=== PATIENT | female | born 1985 | race Hispanic/Latino ===

== ENCOUNTER 2016-03-05 16:25 | Inpatient (IN) | payer MEDICAID ==
[2016-03-05] MEDS ORDERED: LACTATED RINGERS 1,000 ML ONE (16:37)
[2016-03-05] MEDS ORDERED: PITOCin/NS 20 UNIT/1000ML DRIP 1,000 ML IV ONE (16:38)
[2016-03-05] MEDS ORDERED: POLYCILLIN/NS 2 GM/100 ML 100 ML IV ONE ×2 (16:39→18:00)
[2016-03-05] MEDS ORDERED: SUBLIMAZE ONE (16:43)
[2016-03-05 17:00] LABS: Urine Drugs of Abuse Note Disclamer
[2016-03-05] MEDS ORDERED: BRETHINE SUB-Q PRN (17:09)
[2016-03-05] MEDS ORDERED: MINERAL OIL PO PRN (17:09)
[2016-03-05 17:12] LABS: Bacteria,Urine 1+ /HPF (Negative); Bilirubin,Urine NEG (Negative); Blood,Urine MOD (Negative); Ketones,Urine 20 mg/dL (Negative); Leukocyte Esterase,Urine LG (Negative); Mucus,Urine FEW /HPF; Nitrite,Urine NEG (Negative); Protein,Urine <15 mg/dL mg/dL (Negative); Urobilinogen,Urine < 2.0 mg/dL (<2.0)
[2016-03-05] MEDS ORDERED: DERMOPLAST TP PRN (17:13)
[2016-03-05] MEDS ORDERED: TYLENOL PO PRN (17:13)
[2016-03-05] MEDS ORDERED: BENADRYL PO PRN (17:13)
[2016-03-05] MEDS ORDERED: DULCOLAX PR PRN (17:13)
[2016-03-05] MEDS ORDERED: TUCKS PAD TP PRN (17:13)
[2016-03-05] MEDS ORDERED: MILK OF MAGNESIA PO PRN (17:13)
[2016-03-05] MEDS ORDERED: LANSINOH TP PRN (17:13)
[2016-03-05] MEDS ORDERED: ZOFRAN IV PRN (17:13)
[2016-03-05] MEDS ORDERED: PHENERGAN PO PRN (17:13)
[2016-03-05] MEDS ORDERED: ePHEDrine SULFATE IV PRN (17:20)
--- NOTE | 2016-03-05 17:21 | History and Physical Report ---
History of Present Illness Date of examination: 03/05/16 (pt presented to Triage 8cm) Date of admission: 03/05/16 16:27 History of present illness: Past History : 3 Term Births: 1 Premature Births: 0 Living Children: 1 Para: 1 Mult. Births: 0 Prev : 0 Prev. attempt? 0 Aborta: 1 Elect. Ab: 1 Spont. Ab: 0 Ectopics: 0 # 1 Delivery date: 2006 Weeks Gestation: 6 Delivery type: EAB # 2 Delivery date: 04/05/2014 Weeks Gestation: 39 Delivery type: Vaginal Anesthesia type: IV medication Delivery location: [facility] Infant Sex: female weight: 7.25 Past Medical History: Reviewed history from 08/11/2013 and no changes required: Negative Past Medical History Past Surgical History: Reviewed history from 08/11/2013 and no changes required: TAB - no complications Past Medical History Abnormal PAP: negative JANKI Exposure: negative Infertility: negative Uterine Anomaly: negative Uterine Surgery (not C/S): negative Other Gynecologic Problems: negative Social Hx: Patient is single Smoking History: Patient is a former smoker. Infection History Hx of STD: chlamydia Infection History Comments: GC Genetic History Congenital Heart Defect: Mom: no Dad: no Rosy Disease: Mom: no Dad: no Thalassemia Mom: no Dad: no Neural Tube Defect Mom: no Dad: no Down's Syndrome Mom: no Dad: no Hern[place]-Sachs Mom: no Dad: no Sickle Cell Disease/Trait Mom: no Dad: no Hemophilia Mom: no Dad: no Muscular Dystrophy Mom: no Dad: no Cystic Fibrosis Mom: no Dad: no Saima Chorea Mom: no Dad: no Mental Retardation Mom: no Dad: no Fragile X Mom: no Dad: no Other Genetic/Chromosomal Disorder Mom: no Dad: no Child w/other defect Mom: no Dad: no Other: FOB history gastroschesis first child; second child SIDS Enviromental Exposures Xray Exposure: no Medication, drug, or alcohol use since LMP: no Chemical/Other Exposure: no Exposure to Cat Liter: no Hx of Parvovirus (Fifth Disease): no Active Medications (reviewed today): LO LOESTRIN FE 1 MG-10 MCG / 10 MCG ORAL TABS (NORETHIN-ETH ESTRAD-FE BIPHAS) one po q day PLUS 27-1 MG TABS ( VIT-FE FUMARATE-FA) 1 po Current Allergies (reviewed today): No known allergies Laboratory Results Routine Urinalysis Leukocytes: negative Nitrite: negative Urobilinogen: negative Protein: negative Blood: negative Ketone: negative Bilirubin: negative Glucose: negative Urine HCG: positive Review of Systems General Denies fever, chills, sweats, anorexia, fatigue, weakness, malaise, weight loss and sleep disorder. Complains of abnormal vaginal bleeding. Denies vaginal discharge, incontinence, dysuria, hematuria, urinary frequency, amenorrhea, menorrhagia, genital sores, decreased libido, painful periods, painful sex, urinary urgency, hot flashes, vaginal dryness, vaginal itching and vaginal odor. CV Denies chest pains, palpitations, syncope, dyspnea on exertion, orthopnea, PND and peripheral edema. Resp Denies cough, dyspnea at rest, excessive sputum, hemoptysis, wheezing and pleurisy. GI Denies nausea, vomiting, diarrhea, constipation, change in bowel habits, abdominal pain, melena, hematochezia, jaundice, gas/bloating, indigestion/ heartburn, dysphagia and odynophagia. Breast Denies left breast lump, right breast lump, nipple discharge, bloody discharge from nipple, breast pain, abnormal mammogram and breast enlargement. Psych Denies depression, anxiety, irritability and mood swings. PHYSICAL EXAM HEENT: normocephalic, no lesions or deformities Neck/Thyroid: supple, thyroid normal Skin no abnormal lesions or rashes Chest: respiratory effort normal, clear to auscultation Breasts: normal without skin changes or masses CV: regular, normal S1-S2, no murmur, no rub, no gallop Abdomen: normal bowel sounds; soft, nontender Musculoskeletal: grossly normal ROM in joints, no joint tenderness or muscle weakness Neuro: grossly normal DTRs, sensation, strength, cranial nerves Extremities: no discoloration or edema DISABILITY CASE MANAGER Exams Vulva/Vagina: normal appearance, no discharge, lesions. No evidence of cystocele or rectocele. Cervix: normal appearance, no lesions, no discharge Uterus: normal position, midline, mobile Adnexae: no masses or tenderness Rectovaginal: no masses or tenderness Past History - Obstetrical History Expected Date of Delivery: 03/05/16 Actual Gestation: 40 Week(s) 0 Day(s) : 3 Para: 1 Hx # Term Pregnancies: 1 Number of Pregnancies: 0 Spontaneous Abortions: 0 Induced : 1 Number of Living Children: 1 Medications and Allergies Allergies Allergy/AdvReac Type Severity Reaction Status Date / Time No Known Allergies Allergy Verified 04/05/14 01:38 Home Medications Medication Instructions Recorded Confirmed Last Taken Type Calcium Carbonate [Tums] 400 mg PO Q4HR PRN 04/05/14 04/05/14 04/04/14 14:00 History 400mg Vit#96/Ferrous Fum/FA 1 tab PO DAILY 04/05/14 04/05/14 04/04/14 13:00 History [ Tablet] 1 tab Active Meds: Active Medications Acetaminophen (Tylenol) 650 mg PO Q4H PRN PRN Reason: Pain MILD(1-3)/Fever >100.5/LOPEZ Acetaminophen/Hydrocodone Bitart ([place] 5/325) 2 each PO Q6H PRN PRN Reason: Pain, Moderate (4-6) Benzocaine/Menthol (Dermoplast) 1 spray TP PRN PRN PRN Reason: Episiotomy Pain Bisacodyl (Dulcolax) 10 mg OK BID PRN PRN Reason: Constipation Diphenhydramine HCl (Benadryl) 25 mg PO Q6H PRN PRN Reason: Itching Diphtheria/Tetanus/Acell Pertussis (Boostrix) 0.5 ml IM .ONCE ONE Stop: 03/06/16 17:14 Ephedrine Sulfate (Ephedrine Sulfate) 10 mg IV Q2M PRN PRN Reason: Hypotension Stop: 03/05/16 17:14 Ampicillin Sodium (Polycillin/Ns 2 Gm/100 Ml) 100 mls @ 100 mls/hr IV ONCE ONE PRN Reason: Protocol Stop: 03/05/16 18:08 Cefazolin/Sodium Chloride (Ancef/Ns 2 Gm/100 Ml) 100 mls @ 200 mls/hr IV Q8H ERIK PRN Reason: Protocol Lactated Ringer's (Lactated Ringers) 1,000 mls @ 125 mls/hr IV DIRECT ERIK Oxytocin/Sodium Chloride (Pitocin/Ns 20 Unit/1000ml Drip) 1,000 mls @ 125 mls/ hr IV DIRECT ERIK Ibuprofen (Motrin) 600 mg PO Q6H ERIK Magnesium Hydroxide (Milk Of Magnesia) 30 ml PO HS PRN PRN Reason: Constipation Measles/Mumps/Rubella Vaccine Live (M-M-R Ii Vaccine) 0.5 ml SUB-Q .ONCE ONE Stop: 03/06/16 17:14 Methylergonovine Maleate (Methergine) 0.2 mg PO Q8HR ERIK Stop: 03/06/16 14:01 Mineral Oil (Mineral Oil) 30 ml PO QHS PRN PRN Reason: Constipation Multi-Ingredient Ointment (Lansinoh) 1 applic TP PRN PRN PRN Reason: Sore Nipples Ondansetron HCl (Zofran) 4 mg IV Q8H PRN PRN Reason: Nausea And Vomiting Oxytocin (Pitocin) 10 unit IM ONCE ONE Stop: 03/05/16 17:11 Promethazine HCl (Phenergan) 25 mg PO Q6H PRN PRN Reason: Nausea And Vomiting Sodium Chloride (Sodium Chloride Flush Syringe 10 Ml) 10 ml IV PRN NR Terbutaline Sulfate (Brethine) 0.25 mg SUB-Q ONCE PRN PRN Reason: Hyperstimulation/Hypertonicity Stop: 03/05/16 17:10 Witch [place]/Glycerin (Tucks Pad) 1 each TP PRN PRN PRN Reason: Hemorrhoid/cleansing/soothing - Vital Signs Vital signs: Vital Signs Temp Pulse Resp BP Pulse Ox 97.9 F 68 18 124/60 98 03/05/16 16:30 03/05/16 16:30 03/05/16 16:30 03/05/16 16:30 03/05/16 16:30 Temp Pulse Resp BP Pulse Ox 97.9 F 79 18 135/62 96 03/05/16 16:30 03/05/16 17:04 03/05/16 16:30 03/05/16 17:04 03/05/16 16:33 - Physical Exam Breasts: Positive: deferred Cardiovascular: Regular rate, Normal S1, Normal S2 Abdomen: Positive: normal appearance, soft, normal bowel sounds. Negative: distention, tenderness Vulva: both: normal Vagina: Positive: normal moisture. Negative: discharge Cervix: Negative: lesion, discharge Uterus: Positive: normal size, normal contour Adnexa: both: normal Anus/Rectum: Positive: normal perianal skin, heme negative. Negative: rectal mass, hemorrhoids Extremities: Deep Tendon Reflex Grade: Normal +2 - Obstetrical Cervical Dilatation: 8 (per machine plug shaper) Cervical Effacement Percentage: 100 station: -1 Results All other labs normal. Laboratory Data-Patient Name: SYLVIE RIVERO Test Date Result Blood Type 09/24/2015 A Rh 09/24/2015 Positive Antibody Screen 09/24/2015 negative Rubella 09/24/2015 IMMUNE Serology (RPR) 01/31/2016 Negative HBsAg 09/24/2015 Negative Hemoglobin 11/29/2015 11.2 Hematocrit 11/29/2015 33.2 Platelets 09/24/2015 264 [id number] Chlamydia DNA 01/31/2016 Negative GC DNA/Culture 01/31/2016 negative Urine Culture 01/31/2016 Final report Group B Strep cult 01/31/2016 negative PAP 07/06/2015 Abnormal, LSIL HIV 01/31/2016 AFP/Quad Screen 08/11/2013 Glucola Test 3hr GTT (Fasting) 1 hr 2 hr 3 hr [facility]-Patient Name:SYLVIE RIVERO Test Date Result Varicella Ab Sickle Cell 09/24/2015 Negative PPD Fibronectin Cystic Fibrosis Parvovirus TSH Free T4 Hepatitis C ALT AST Uric Acid Creatinine 24 hr Urine Protein KANE Assessment and Plan Labor stated last night Got very painful today Arrived Triage 8,C,-1 She did not call CNM prior to arrival
--- NOTE | 2016-03-05 17:31 | Procedure Note ---
OB Delivery Note - Delivery Date of Delivery: 03/05/16 Biomedical Photographer: ADDIE SILVA Estimated blood loss: 300cc - Vaginal Delivery presentation: vertex Delivery position: OA Intrapartum events: other(please specify) (UDS + marijuana throughout gestation) Delivery induction: none Delivery monitor: external FHT, external uterine Route of delivery: Delivery placenta: spontaneous Delivery cord: 3 umbilical vessels Episiotomy: none Delivery laceration: none Anesthesia: none Delivery comments: Pt fully dialted on my arrival live born female over intact perineum Baby to mom's abdomen Placenta and membrane del complete and intact, 3 vessel cord. Placenta to pathology. RT called due to baby grunting. 8/9, EBL 300, IM pitocin given No IV site @ time of delivery. Wgt 8-8. Mom and baby remain LDR stable.
[2016-03-05] MEDS: MOTRIN PO SCH (17:34)
[2016-03-05] MEDS ORDERED: NS IV SCH (18:00)
[2016-03-05] MEDS ORDERED: PITOCin/NS 20 UNIT/1000ML DRIP 1,000 ML IV SCH (18:00)
[2016-03-05] MEDS ORDERED: LACTATED RINGERS 1,000 ML IV SCH (18:00)
[2016-03-05] MEDS ORDERED: ANCEF IV SCH (18:00)
[2016-03-05] MEDS ORDERED: SODIUM CHLORIDE FLUSH SYRINGE 10 ML IV SCH (18:00)
[2016-03-05 18:15] LABS: Basophils % (Auto) 0.6 % (0.0-1.8); Eosinophils % (Auto) 0.6 % (0.0-4.3); Hematocrit 37.1 % (30.3-42.9); Hemoglobin 12.1 gm/dl (10.1-14.3); Mean Corpuscular HGB Conc 33 % (30-34); Mean Corpuscular Hemoglobin 29 pg (28-32); Mean Corpuscular Volume 88 fl (79-97); Platelet Count 268 K/mm3 (140-440); Red Blood Count 4.24 M/mm3 (3.65-5.03); Red Cell Distribution Width 14.4 % (13.2-15.2); White Blood Count 9.9 K/mm3 (4.5-11.0)
[2016-03-05] MEDS: NORCO 5/325 PO PRN (20:52)
[2016-03-05] MEDS: METHERGINE PO SCH (22:21)
[2016-03-06] MEDS: MOTRIN PO SCH ×3 (00:01→12:46)
[2016-03-06] MEDS ORDERED: BOOSTRIX IM ONE (06:00)
[2016-03-06] MEDS: METHERGINE PO SCH ×2 (06:04→14:05)
[2016-03-06] MEDS: NORCO 5/325 PO PRN (08:43)
--- NOTE | 2016-03-06 09:10 | Discharge Summary ---
Providers - Providers Date of Admission: 03/05/16 16:27 Date of discharge: 03/06/16 Attending physician: RUSH SNYDER Primary care physician: RUSH SNYDER Hospitalization Reason for admission: active labor Delivery: (8-8) Episiotomy: none Laceration: none Other procedures: none complications: none Discharge diagnosis: IUP at term delivered [place] baby: female (8-8) Condition at discharge: Good Disposition: DISCHARGED TO HOME OR SELFCARE - Discharge Diagnoses (1) Spontaneous vaginal delivery Status: Acute Plan - Provider Discharge Summary Activity: no sex for 6 weeks, no heavy lifting 4 weeks Diet: routine Instructions: routine Additional instructions: [] Smoking cessation referral if applicable(refer to patient education folder for contact #) [] Refer to [facility] Booklet Call your doctor immediately for: * Fever > 100.5 * Heavy vaginal bleeding ( >1 pad per hour) * Severe persistent headache * Shortness of breath * Reddened, hot, painful area to leg or breast * Drainage or odor from incision. * Keep incision clean and dry at all times and follow doctor's instructions regarding bathing/showering - Follow up plan Follow up: RUSH SNYDER MD [Primary Care Provider] - 7 Days
[2016-03-06] MEDS ORDERED: ROBITUSSIN PO PRN (09:30)
[2016-03-06 16:34] VITALS: BP 111/67
[2016-03-06] MEDS ORDERED: M-M-R II VACCINE SUB-Q ONE (17:13)
== END 2016-03-06 18:30 | disposition home or self-care (01) | DRG 775 ==
LOC: TRG 16:25 → LD 16:27 → OB 18:38
PROVIDERS: ADMIT Obstetrics & Gynecology; ATTEND Obstetrics & Gynecology
PROC: 10E0XZZ Delivery of Products of Conception, External Approach (ICD-10-PCS; principal; 2016-03-05)
DX: O99.320 Drug use complicating pregnancy, unspecified trimester (principal); Z37.0 Single live birth; Z3A.40 40 weeks gestation of pregnancy; Z79.899 Other long term (current) drug therapy; Z87.891 Personal history of nicotine dependence; F12.90 Cannabis use, unspecified, uncomplicated
CPT/HCPCS: 36415; 80307; 81001; 85025; 86850; 86900; 86901; 88307; 99211; G0463; J0290; J0690; J2590; J3010; J7120